=== PATIENT | female | born 1980 | race Caucasian/White ===

== ENCOUNTER 2020-06-19 17:48 | Emergency (ER) | payer OTHER ==
[~2020-06-19] VITALS: Ht 170.2 cm; Wt 93.0 kg
[2020-06-19] MEDS ORDERED: ONDANSETRON HCL/PF 4 MG/2 ML VIAL ONE (18:19)
[2020-06-19] MEDS ORDERED: ONDANSETRON HCL/PF 4 MG/2 ML VIAL IVP ONE (18:30)
[2020-06-19] MEDS ORDERED: IV NS 0.9% 1,000 ML BAG IV ONE (18:30)
--- NOTE | 2020-06-19 18:30 | NUR ---
[facility] TO ER BED 7. AAOX4. NOT IN RESP DISTRESS. AMBULATORY. BROUGHT IN FOR WEAKNESS, FATIGUE AND DIZZYNESS. PT REPORTS THAT SHE WORKED 7 DAY. DIZZYNESS HAVE RESOLVED. MD WAS AT THE BEDSIDE FOR EVAL. NO NEURO DEFICIT NOTED. IV LINE ALREADY ESTABLISHED ON L AC 20G , BLOOD DRAWN AND GIVEN TO PHLEB. URINE COLLECTED AND SENT TO LAB.
--- NOTE | 2020-06-19 18:35 | NUR ---
PT REFUSED TO HAVE THE ZOFRAN.
[2020-06-19 18:40] LABS: BASOPHILS % (AUTO) 0.5 % (0.0-2.0); EOSINOPHILS % (AUTO) 0.2 % (0.0-6.0); HEMATOCRIT 38 % (33-45); HEMOGLOBIN 12.7 g/dL (11.5-14.8); LYMPHOCYTES # (AUTO) 1.3 /CMM (0.8-4.8); MEAN CORPUSCULAR HGB CONC 33 g/dl (31.0-36.0); MEAN CORPUSCULAR VOLUME 96 fL (82-100); MONOCYTES # (AUTO) 0.4 /CMM (0.1-1.30); MONOCYTES % (AUTO) 5.4 % (2.0-12.0); NEUTROPHILS # (AUTO) 5.9 /CMM (1.8-8.9); NEUTROPHILS % (AUTO) 76.9 % (43.0-81.0); PLATELET COUNT (AUTO) 235 /CMM (150-450); RED BLOOD CELL COUNT(AUTO) 3.97 MIL/uL (4.0-5.2); WHITE BLOOD COUNT (AUTO) 7.6 K/uL (4.3-11.0)
[2020-06-19 18:54] LABS: BILIRUBIN,URINE NEGATIVE (NEGATIVE); COLOR,URINE YELLOW (YELLOW); LEUKOCYTE ESTERASE ,URINE NEGATIVE (NEGATIVE); NITRITE, URINE NEGATIVE (NEGATIVE); PH,URINE 5.5 (5.0-8.0); PROTEIN,URINE NEGATIVE (NEGATIVE); UGLUCOSE NEGATIVE (NEGATIVE); UROBILINOGEN,URINE 0.2 EU/dL (0.2)
[2020-06-19 19:11] LABS: ALBUMIN 3.8 g/dL (3.4-5.0); BILIRUBIN,DIRECT 0.1 mg/dL (0.0-0.2); BILIRUBIN,TOTAL 0.4 mg/dL (0.2-1.0); CALCIUM, SERUM 8.8 mg/dL (8.5-10.1); POTASSIUM 3.6 mmol/L (3.5-5.1); TOTAL PROTEIN, SERUM 7.2 g/dL (6.4-8.2)
--- NOTE | 2020-06-19 19:59 | NUR ---
Patient discharged to home in stable condition. Written and verbal after care instructions given. Patient verbalizes understanding of instruction.IV removed. Catheter intact and site benign. Pressure and 4x4 applied to site. No bleeding noted. Pt ambulatory with a steady gait
[2020-06-19 20:04] VITALS: BP 119/72
== END 2020-06-19 20:05 | disposition home or self-care (01) ==
LOC: ER 17:53
DX: R42 Dizziness and giddiness (principal); Z60.2 Problems related to living alone
CPT/HCPCS: 36415; 80048; 80076; 81003; 83690; 84703; 85025; 93005; 96360; 99284; J7030; J2405